=== PATIENT | female | born 1945 | race Caucasian/White ===

== ENCOUNTER → 2017-02-02 | Outpatient (CLI) | payer OTHER ==
[~2017-02-02] MED LIST: ULTR50TA5 PO
--- NOTE | 2017-02-03 14:47 | EKG ---
Date Performed: 02/02/2017 Time Performed: 09:47:03 PTAGE: 71 years EKG: Sinus rhythm NORMAL ECG Compared to prior tracing no significant change PREVIOUS TRACING : 09/28/13 DOCTOR: Nirmal Vogel Interpretating Date/Time 02/03/2017 14:45:45
== END ==
LOC: CPRE 09:19
PROVIDERS: ATTEND Obstetrics & Gynecology Gynecologic Oncology
DX: Z01.810 Encounter for preprocedural cardiovascular examination (principal); C51.9 Malignant neoplasm of vulva, unspecified
CPT/HCPCS: 93005

== ENCOUNTER 2017-02-10 11:13 | Inpatient (IN) | payer OTHER, MEDICARE ==
[~2017-02-10] VITALS: Ht 160 cm; Wt 58.0 kg
[2017-02-10] MEDS ORDERED: ROCURONIUM INJ 50 MG/5 ML SYRINGE IV PUSH ONE (12:00)
[2017-02-10] MEDS ORDERED: GLYCOPYRROLATE 1 MG/5 ML SYRINGE IV PUSH ONE (12:00)
[2017-02-10] MEDS ORDERED: PROPOFOL 200 MG/20 ML AMP IV ONE (12:00)
[2017-02-10] MEDS ORDERED: LIDOCAINE 1.5%/EPINEPHrine 1:200,000 PF SOLN 30 ML AMP INFIL ONE (12:00)
[2017-02-10] MEDS ORDERED: DEXAMETHASONE SOD PHOS 4 MG/ML VIAL IV ONE (12:00)
[2017-02-10] MEDS ORDERED: ePHEDrine/NS 25 MG/5 ML SYR IV ONE (12:00)
[2017-02-10] MEDS ORDERED: LIDOCAINE HCL 1% PF 5 ML AMPULE OTHER ONE (12:00)
[2017-02-10] MEDS ORDERED: MIDAZOLAM HCL 2 MG/2 ML VIAL IV ONE (12:00)
[2017-02-10] MEDS ORDERED: ONDANSETRON HCL 4 MG/2 ML VIAL IV PUSH ONE (12:00)
[2017-02-10] MEDS ORDERED: ACETAMINOPHEN 1000 MG/100 ML 100 ML IV ONE (12:04)
[2017-02-10] MEDS ORDERED: FAMOTIDINE 20 MG/2 ML VIAL ONE (12:04)
[2017-02-10] MEDS ORDERED: BUPIVACAINE/EPINEPHRINE 0.25% 50 ML VIAL ONE (12:09)
[2017-02-10] MEDS ORDERED: CHLORHEXIDINE GLUCONATE 2 % 1 PACK (2 CLOTHS) TOPICAL PRN (12:30)
[2017-02-10] MEDS ORDERED: POVIDONE IODINE 5% (ANTISEPSIS KIT) 4 APPLICATIONS EACH NARE PRN (12:30)
[2017-02-10] MEDS ORDERED: LACTATED RINGER'S 1000 ML IV PRN (12:30)
[2017-02-10] MEDS ORDERED: INSULIN HUMAN REGULAR 1,000 UNITS/10 ML VIAL SQ PRN (12:30)
[2017-02-10] MEDS ORDERED: SODIUM CHLORID 0.9% 500 ML IV PRN (12:30)
[2017-02-10] MEDS ORDERED: METOPROLOL TARTRATE 25 MG TAB PO PRN (12:30)
[2017-02-10] MEDS ORDERED: ceFAZolin INJ 1,000 MG VIAL ONE (13:00)
[2017-02-10] MEDS: D5-1/2 NS + KCL 20 MEQ INJ 1,000 ML IV SCH (14:44)
[2017-02-10] MEDS ORDERED: SODIUM CHLORIDE 0.9% FLUSH 10 ML FLUSH IV FLUSH PRN (14:45)
[2017-02-10] MEDS ORDERED: DO NOT ADM ANY ANTICOAGULANT DRUGS PRN (14:50)
[2017-02-10] MEDS: KETOROLAC TROMETHAMINE 30 MG/ML (IVP) VIAL IVP SCH ×2 (15:42→21:23)
[2017-02-10 15:56] VITALS: BP 174/80; PULSE 60; RESP 16; TEMP 96.5; O2SAT 100
[2017-02-10] MEDS ORDERED: ONDANSETRON HCL 4 MG/2 ML VIAL IVP PRN (16:00)
[2017-02-10] MEDS ORDERED: diphenhydrAMINE HCL 25 MG CAP PO PRN (16:00)
[2017-02-10] MEDS ORDERED: LORazepam 0.5 MG TAB PO PRN (16:00)
[2017-02-10] MEDS ORDERED: traMADol HCL 50 MG TAB PO PRN (16:00)
[2017-02-10 20:00] VITALS: BP 130/70; PULSE 87; RESP 17; TEMP 97.6; O2SAT 95
[2017-02-10] MEDS: SODIUM CHLORIDE 0.9% FLUSH 10 ML FLUSH IV FLUSH SCH (21:23)
[2017-02-11] VITALS: BP 135/63; PULSE 71; RESP 18; TEMP 96.1; O2SAT 95
[2017-02-11] MEDS: D5-1/2 NS + KCL 20 MEQ INJ 1,000 ML IV SCH (00:05)
[2017-02-11 04:00] VITALS: BP_SYST 117; BP_SYST 95; BP_DIAS 57; BP_DIAS 58; PULSE 70; PULSE 78; RESP 17; TEMP 96.1; TEMP 98; O2SAT 95; O2SAT 97
[2017-02-11] MEDS: KETOROLAC TROMETHAMINE 30 MG/ML (IVP) VIAL IVP SCH ×2 (04:53→10:06)
[2017-02-11] MEDS: SODIUM CHLORIDE 0.9% FLUSH 10 ML FLUSH IV FLUSH SCH (07:14)
[2017-02-11 07:25] LABS: AUTOMATED NEUTROPHIL # 11.2 TH/MM3 (1.8-7.7); BASOPHIL % 0.2 % (0.0-2.0); HEMATOCRIT 35.4 % (35.0-46.0); HEMO FLAGS DIFF FINAL; LYMPH % 10.2 % (9.0-44.0); LYMPHOCYTE # 1.4 TH/MM3 (1.0-4.8); MEAN CELL VOLUME 89.7 FL (80.0-100.0); MEAN CORPUSCULAR HEMOGLOBIN 30.1 PG (27.0-34.0); MEAN CORPUSCULAR HGB CONC 33.6 % (32.0-36.0); MONO % 5.5 % (0.0-8.0); NEUT % 84.1 % (16.0-70.0); PLATELET COUNT 307 TH/MM3 (150-450); RED BLOOD COUNT 3.95 MIL/MM3 (4.00-5.30); RED CELL DISTRIBUTION WIDTH 13.1 % (11.6-17.2); WHITE BLOOD COUNT 13.3 TH/MM3 (4.0-11.0)
[2017-02-11 07:37] LABS: BICARBONATE 23.7 MEQ/L (21.0-32.0); POTASSIUM 4.5 MEQ/L (3.5-5.1)
[2017-02-11] MEDS ORDERED: ULTR50TA5 PO (07:54)
[2017-02-11 08:00] VITALS: BP 138/79; PULSE 69; RESP 20; TEMP 95.8; O2SAT 98
--- NOTE | 2017-02-11 08:00 | PD.ONC.PN ---
Subjective Subjective Remarks pt is resting in bed states Ultram controls pain she only took one tab last night denies any n/v states minimal bleeding from site Objective Data Date Time Temp Pulse Resp B/P (MAP) Pulse Ox O2 Delivery O2 Flow Rate FiO2 02/11/17 04:00 96.1 70 17 117/58 (77) 97 02/11/17 00:00 96.1 71 18 135/63 (87) 95 02/10/17 20:00 97.6 87 17 130/70 (90) 95 02/10/17 15:56 96.5 60 16 174/80 (111) 100 02/10/17 15:35 98.1 60 20 154/78 (103) 100 Nasal Cannula 2 02/10/17 15:30 60 20 154/78 (103) 100 Nasal Cannula 2 02/10/17 15:15 61 20 175/85 (115) 100 Nasal Cannula 2 02/10/17 15:00 62 20 149/74 (99) 100 Nasal Cannula 2 02/10/17 14:53 98.1 68 20 154/74 (100) 95 Nasal Cannula 2 02/10/17 11:55 97.8 64 16 175/79 (111) 97 02/11/17 02/11/17 02/11/17 07:00 15:00 23:00 Intake Total 1200 ml Output Total 850 ml Balance 350 ml Result Diagram: 02/11/1762102/11/17621 Laboratory Results Laboratory Tests Test 02/11/17 06:22 White Blood Count 13.3 TH/MM3 Red Blood Count 3.95 MIL/MM3 Hemoglobin 11.9 GM/DL Hematocrit 35.4 % Mean Corpuscular Volume 89.7 FL Mean Corpuscular Hemoglobin 30.1 PG Mean Corpuscular Hemoglobin Concent 33.6 % Red Cell Distribution Width 13.1 % Platelet Count 307 TH/MM3 Mean Platelet Volume 8.3 FL Neutrophils (%) (Auto) 84.1 % Lymphocytes (%) (Auto) 10.2 % Monocytes (%) (Auto) 5.5 % Eosinophils (%) (Auto) 0.0 % Basophils (%) (Auto) 0.2 % Neutrophils # (Auto) 11.2 TH/MM3 Lymphocytes # (Auto) 1.4 TH/MM3 Monocytes # (Auto) 0.7 TH/MM3 Eosinophils # (Auto) 0.0 TH/MM3 Basophils # (Auto) 0.0 TH/MM3 CBC Comment DIFF FINAL Differential Comment Blood Urea Nitrogen 13 MG/DL Creatinine 0.86 MG/DL Random Glucose 112 MG/DL Calcium Level 8.0 MG/DL Sodium Level 139 MEQ/L Potassium Level 4.5 MEQ/L Chloride Level 108 MEQ/L Carbon Dioxide Level 23.7 MEQ/L Anion Gap 7 MEQ/L Estimat Glomerular Filtration Rate 65 ML/MIN Administered Medications Medications (Trade) Dose Ordered Sig/Sam Route PRN Reason Start Time Stop Time Status Last Admin Dose Admin Potassium Chloride/Dextrose/ Sod Cl 1,000 ml @ 100 mls/hr Q10H IV 02/10/17 14:44 02/11/17 00:05 Sodium Chloride (NS Flush) 2 ml BID IV FLUSH 02/10/17 21:00 02/10/17 21:23 Ketorolac Tromethamine (Toradol Inj) 15 mg Q6H IVP 02/10/17 16:00 02/11/17 10:01 02/11/17 04:53 Tramadol HCl (Ultram) 50 mg Q4HR PRN PO PAIN SCALE 1 TO 10 02/10/17 16:00 02/11/17 00:04 Objective Remarks GENERAL: Well-nourished, well-developed patient. SKIN: Warm and dry. HEAD: Normocephalic. EYES: No scleral icterus. No injection or drainage. CARDIOVASCULAR: Regular rate and rhythm without murmurs. RESPIRATORY: Breath sounds equal bilaterally. No accessory muscle use. [employer] A[employer]LETE: sutures are intact with scant blood on shaka pad. slight swelling no drainage EXTREMITIES: teds and scds MUSCULOSKELETAL: Adequate muscle tone. NEUROLOGICAL: No obvious focal deficit. Awake, alert, and oriented x3. PSYCHIATRIC: Appropriate mood and affect; insight and judgment normal. Assessment/Plan Problem List: (1) Vulvar cancer, carcinoma ICD Codes: C51.9 - Malignant neoplasm of vulva, unspecified Plan: s/p resection of vulvar tumor pt meets criteria for discharge Ultram 50mg 1 po Q 6 hours PRN/Pain ok to restart any home meds has follow up appt in certified family mediator/onc clinic pt instructed to call office if she has any concerns Attending Statement Dr. Salcedo is in agreement with this plan. Wendi Terry Feb 11, 2017 08:00
--- NOTE | 2017-02-12 18:46 | MP ---
cc: AUSTYN MCINTOSH M.D., KELLY L. MD PORTER, AARON, DATE OF SURGERY 02/10/2017 PREOPERATIVE DIAGNOSIS Squamous cell carcinoma of the vulva. 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 PROCEDURE Modified radical vulvar excision. SURGEON Jenny Salcedo MD. CANVASSING MANAGER [place] first aid instructor. ANESTHESIA General endotracheal anesthesia. ESTIMATED BLOOD LOSS 30 cc. HISTORY This is a 71-year-old female who has had prior squamous cell carcinoma of the vulva resected with sentinel lymph node mapping of the groin, sentinel node were negative. I believe she has also had one other episode of an invasive lesion resected from the vulva. She has also had a primary squamous cell carcinoma of the anus that was treated with an abdominal perineal resection. She reports in recent weeks she has noticed raised abnormal area in the ventral vulva in the midline. She was seen in [facility] oncology office, clinically it appears to be an invasive cancer. Biopsy in the office was obtained which was nondiagnostic, showed only inflammatory changes. She is seen in the preop holding area after being extensively counseled regarding management as she presents for surgical management. She is made aware that the office biopsy was nondiagnostic and that additional biopsies would be taken at the start of her case to try to clarify the diagnosis and the surgical procedure would be modified and directed accordingly. FINDINGS On exam under anesthesia the findings are as described in recent office note. Three biopsies were obtained at the start of the case, all of which showed the high-grade dysplasia, condylomatous type changes in multiple folds of epithelium. An area suspicious for microinvasion but none of them were diagnostic for invasive disease as discussed with Dr. Palmira Lopez, pathologist, who was helping us with the frozen section analysis. PROCEDURE She was taken to the operating room, placed in dorsal lithotomy position. After general endotracheal anesthesia was administered time-out was undertaken. She was identified by sight recognition and hospital ID bracelet and the proposed procedure was reviewed and confirmed. Local prep was done. Three punch biopsies were obtained using a 4-mm punch biopsy instrument. They were combined and sent for frozen section with findings as described above. She was then fully prepped and draped in sterile fashion and a sterile marker was used to outline the area of abnormality, it is in the central vulva surrounding the clitoris, periclitoral tissue extending to the labia minora, majora of the ventral vulva but was not in immediate proximity to the urethra. Given the absence of proven deep invasive disease the depth of excision was modified. The outline of the excision removed all abnormal-appearing tissue with a margin of normal-appearing tissue circumferentially but the radicality regarding depth of invasion was lessened such as skin and subcutaneous tissue was removed. Skin and overlying tissue from the glans of the clitoris was sharply removed as this was clearly abnormal but the sensory tissue of the clitoris was largely spared and the dissection was continued circumferentially until the specimen was removed. This specimen was sent for frozen section analysis with the understanding that we may need to have a more radical dissection and deeper dissection if there was confirmation of invasive disease but the frozen section came back from this specimen showing similar findings but no overt evidence of invasive disease. If invasive disease were present it was thought to be less than a millimeter. Accordingly, it was felt that the morbidity of a more radical dissection would exceed the benefit and attention was directed toward closing the surgical defect, 3-0 Vicryl sutures were used in an interrupted fashion in layers to reapproximate the subcutaneous tissue until the skin edges and mucosal edges were in close proximity without tension and then the skin edges and mucosal edges were reapproximated with interrupted 3-0 Vicryl sutures which rendered the surgical defect closed without tension, good hemostasis, complete resection of abnormal-appearing tissue and satisfactory cosmetic result given the dissection. Pelvic exam confirmed there were no remaining foreign objects in the vagina. Preliminary and final counts were correct. She was returned to dorsal supine position and was pending reversal of anesthesia when I left operating room to precede her to the Post Anesthesia Care Unit. It should be noted that a Park catheter was placed during surgery and we kept in with plans to remove it the following morning as there was at least a 1 cm distance between the urethra and the sutures such that voiding should not be affected. MD JARRETT Thomas/ELIOT /4:27 PM /6:25 PM
== END 2017-02-11 10:40 | disposition home or self-care (01) | DRG 747 ==
LOC: HSDI 11:13 → HOCA 15:45
PROVIDERS: ADMIT Obstetrics & Gynecology Gynecologic Oncology; ATTEND Obstetrics & Gynecology Gynecologic Oncology
PROC: 0UBMXZZ Excision of Vulva, External Approach (ICD-10-PCS; principal; 2017-02-10 13:00)
DX: C51.9 Malignant neoplasm of vulva, unspecified (principal); D64.9 Anemia, unspecified; Z85.048 Personal history of other malignant neoplasm of rectum, rectosigmoid junction, and anus; F32.9 Major depressive disorder, single episode, unspecified; E03.9 Hypothyroidism, unspecified; G47.00 Insomnia, unspecified; Z87.891 Personal history of nicotine dependence
CPT/HCPCS: 80048; 85025; 86850; 86900; 86901; 88305; 88331; 94150; J0131; J0690; J1100; J1885; J2250; J2405; J3010; J3480

== ENCOUNTER → 2017-11-10 | Day surgery (SDC) | payer MEDICARE ==
[~2017-11-10] VITALS: Ht 160 cm; Wt 57.5 kg
[~2017-11-10] MED LIST changes: +ACETAMINOPHEN 1000 MG/100 ML 100 ML IV ONE; +CHLORHEXIDINE GLUCONATE 2 % 1 PACK (2 CLOTHS) TOPICAL PRN; +DEXAMETHASONE SOD PHOS 4 MG/ML VIAL IV ONE; +DO NOT ADM ANY ANTICOAGULANT DRUGS PRN; +KETOROLAC TROMETHAMINE 30 MG/ML (IVP) VIAL IV PUSH ONE; +LACTATED RINGER'S 1000 ML IV PRN; +LIDOCAINE 1%/EPINEPHrine 1:100,000 SOLN 30 ML VIAL ONE; +LIDOCAINE HCL 1% PF 5 ML SYRINGE OTHER ONE; +METOPROLOL TARTRATE 25 MG TAB PO PRN; +MIDAZOLAM HCL 2 MG/2 ML VIAL ONE; +ONDANSETRON HCL 4 MG/2 ML VIAL IV ONE; +POVIDONE IODINE 5% (ANTISEPSIS KIT) 4 APPLICATIONS EACH NARE PRN; +PROPOFOL 200 MG/20 ML AMP IV ONE; +SODIUM CHLORID 0.9% 500 ML IV PRN; -ULTR50TA5 PO; +ceFAZolin INJ 1,000 MG VIAL IV ONE; +ePHEDrine/NS 25 MG/5 ML SYRINGE IV ONE
--- NOTE | 2017-11-10 16:34 | MP ---
cc: Jenny Salcedo MD, Melanie R MD Porter,Andres MERRILL DATE OF OPERATION: 11/10/2017 PREOPERATIVE DIAGNOSIS: Recurrent high-grade vulvar dysplasia. POSTOPERATIVE DIAGNOSIS: Recurrent high-grade vulvar dysplasia. PROCEDURE: Examination under anesthesia, wide local excision of the right vulva. SURGEON: Jenny Salcedo MD. ROOM CLEANER: [place] cutting table operator first. ANESTHESIA: Laryngeal mask anesthesia. ESTIMATED BLOOD LOSS: Less than 20 mL. 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 There is a lesion at the 10 to 11 o'clock position on the right vulva. Office biopsy showed a high-grade dysplasia. She has been counseled regarding options and prefers to have it resected and she presents now for that endeavor. She was seen in the preop holding area where findings are reviewed, plan of care discussed. Questions were answered. She expressed good understanding and agreed. FINDINGS: On exam under anesthesia, there are marked anatomical changes consistent with prior radical vulvectomy and groin dissection, APR with resection of the anus and rectum. She has a permanent descending colostomy. At the 10 to 11 o'clock position right vulva near the introitus she has an approximately 8 mm raised, fairly well demarcated lesion consistent with recent biopsy site showing high-grade dysplasia. There is some induration and firmness below and adjacent to that. There is minimal mobility to the skin and subcutaneous tissue given prior radical excisions, but the least tension was derived by doing a circumlinear transverse incision, which allowed the skin to be brought together with minimal tension with complete excision of the grossly visible lesion. No other abnormalities detected. DESCRIPTION OF PROCEDURE: She was taken to the operating room and placed in dorsal lithotomy position. After laryngeal mask anesthesia was administered, timeout was undertaken. She was identified by site recognition and hospital ID bracelet and the proposed procedure was reviewed and confirmed. Exam under anesthesia was performed with findings as described above. She was prepped and draped in sterile fashion. In-and-out catheterization of the bladder was performed. Careful inspection and palpation in evaluating the tissue led to the decision for the type of incision to bring the skin together with the least tension. An elliptical excision was outlined circumlinear with surgical marker. Lidocaine epinephrine was injected. Sharp dissection was used to remove the lesion with a margin circumferentially of normal-appearing tissue with wide and deep excision, normal in gross appearance. The defect was closed with interrupted subcutaneous 3-0 Vicryl sutures until the skin edges were in close proximity without tension and then the skin edges were closed with interrupted 3-0 Vicryl sutures which rendered the skin completely hemostatic, well approximated, without undue tension and satisfactory cosmetic results. Vaginal exam confirmed there were no remaining foreign objects in the vagina. Preliminary and final counts were correct. She was returned to dorsal supine position and was pending reversal of anesthesia when a left the operating room to proceed her to the postanesthesia care unit. MD BLAYNE Campos/EN , 04:07 PM , 04:33 PM
[2017-11-10 17:12] VITALS: BP 166/78; PULSE 64; RESP 20; TEMP 98; O2SAT 98
== END | disposition home or self-care (01) ==
LOC: HSDC 11:55
PROVIDERS: ATTEND Obstetrics & Gynecology Gynecologic Oncology
DX: D07.1 Carcinoma in situ of vulva (principal)
CPT/HCPCS: 00940; 11623; 86850; 86900; 86901; 88305; J0131; J0690; J2250; J3010; J7120; J1100; J1885; J2405